=== PATIENT | female | born 1960 | race Caucasian/White ===

== ENCOUNTER 2024-07-20 10:32 | Inpatient (IN) | payer MEDICARE, SELFPAY ==
--- NOTE | ~2024-07-20 | CT_ITS ---
EXAMINATION: CT ABDOMEN AND PELVIS WITH CONTRAST CLINICAL INFORMATION: Lower abdominal pain. Prior history of diverticulitis. COMPARISON: None available. TECHNIQUE: Multidetector volumetric images were obtained from the superior aspect of the liver through the pubic symphysis following administration 85 mL of Omnipaque 350 intravenous contrast. Sagittal and coronal reformatted images were obtained on the technologist's workstation. Oral contrast: No This CT examination was performed using dose optimization techniques as appropriate, variously including the following: *Automated exposure control *Adjustment of mA and/or kV according to patient size (this includes techniques or standardized protocols for targeted exams where dose is matched to indication/reason for exam; i.e. extremities or head) *Use of iterative reconstruction technique DLP: 551 mGy/cm FINDINGS: LUNG BASES: No acute airspace disease in the included lungs. Questionable 1 mm pulmonary nodule left lung base. LIVER, GALLBLADDER, AND BILIARY TREE: Liver measures 15 cm. There are multiple few scattered less than 5 mm hypodensities throughout the parenchyma. There is a focal hypodensity adjacent to the falciform ligament. The portal veins, hepatic veins and intrahepatic portion of the IVC are patent. No pericholecystic fluid collection or gallbladder wall thickening. Common bile duct measures 4 mm. PANCREAS: No focal mass. No peripancreatic fluid collection. No main pancreatic ductal dilatation. SPLEEN: 8 cm. No focal lesion. ADRENAL GLANDS: No nodular lesions. KIDNEYS AND URETERS: No hydronephrosis or gross nephrolithiasis. The right kidney has in ventral rotation of the hilum. No gross renal mass. Subcentimeter hypodensities in the renal parenchyma bilaterally. BLADDER: Fluid-filled. GASTROINTESTINAL TRACT: Numerous diverticula throughout the large intestine mostly in the sigmoid colon. There is a pericolonic edema pattern in the mid-distal sigmoid colon with a prominent diverticulum in the posterior superior margin and trace of fluid without peripheral enhancing fluid collection. No pneumoperitoneum or extraluminal gas. No intestinal obstruction pattern. No pneumatosis intestinalis. I do not see the appendix. Terminal ileum is normal. ABDOMINAL WALL: Small fat-containing umbilical hernia. LYMPH NODES: Prominent lymph nodes, mesenteric and retroperitoneum. VASCULAR: Calcified plaques in the abdominal aorta wall and iliac arteries without aneurysm or dissection. PELVIC VISCERA: I do not see the uterus. OSSEOUS STRUCTURES: Multilevel thoracolumbar spondylosis with S-shaped curvature. No acute fracture or gross listhesis. Large syndesmophyte formation and marginal osteophyte formation at L2-3. No acute fracture or dislocation in the coxofemoral joints. Bony pelvis is intact. CT/CT abdomen pelvis w IV con IMPRESSION: Acute sigmoid colon diverticulitis with questionable phlegmon and no overt fluid collection or extraluminal air/gas. Concerning microperforation. Small fat-containing umbilical hernia. Mild rotation, right kidney, congenital.. Small cyst versus hamartoma, hepatic. Fleischner guidelines were followed. Electronically signed by: Ramakrishna De La Cruz MD 07/20/2024 03:23 PM EST
--- NOTE | 2024-07-20 11:12 | ED_ITS ---
HPI - Abdominal Pain General Chief Complaint: Abdominal Pain Stated Complaint: Severe abd pain Time Seen by Provider: 07/20/24 14:35 Source: patient, RN notes reviewed and old records reviewed Mode of arrival: ambulatory History of Present Illness ED Provider: Mickie Velasquez PA-C HPI narrative: 64-year-old female with a past medical history of diverticulitis presenting to the ED complaining of lower abdominal pain and low back pain x few days with associated nausea. Denies fever, chills, vomiting, diarrhea, hematuria, dysuria Related Data Allergies Allergy/AdvReac Type Severity Reaction Status Date / Time No Known Allergies Allergy Verified 07/20/24 11:16 Review of Systems Review of Systems Yes all other systems are reviewed and are negative Constitutional: Reports as per [facility] Past Medical History Attestation statement: The following information was validated with the patient. Source: old records reviewed Social History Social History Advance Directives: No Advance Directives Information Provided: No Physical Exam ED Vital Signs: Vital Signs - 24 hr 07/20/24 11:14 07/20/24 15:04 Temperature 98.6 F 98.3 F Pulse Rate 84 99 Respiratory Rate 16 16 Blood Pressure 151/96 H 158/77 H Pulse Oximetry 99 97 Oxygen Delivery Method Room Air Room Air BMI result Body Mass Index 28.4 Const General: cooperative, healthy appearing and no acute distress Orientation/consciousness: patient oriented x3 Limitations: no limitations HENMT Head: Yes normal to inspection and Yes atraumatic Ears: hearing grossly normal bilaterally General nose exam: Normal external nose present Face and sinus: Yes normal facial exam Eyes General: appearance normal, both eyes and all related structures EOM: EOMs intact bilaterally Neck Neck: Yes normal visual inspection and Yes no meningeal signs Resp Effort & Inspection: normal respiratory effort and no respiratory distress Auscultation: clear to auscultation bilaterally Cardio Rate: regular rate Heart sounds: S1 normal heart sound present and S2 normal heart sound present GI Inspection: Yes normal to inspection Palpation (GI): Soft to palpation, Tenderness to palpation present (GI) (Lower abdomen) with no rebound tenderness, no guarding and not rigid General: Yes no CVA tenderness Back/Spine/Pelvis Back: no CVA tenderness Skin Rashes: no rashes Wounds: no wounds Neuro General: patient oriented x3, tone normal and no meningeal signs Cranial nerves: Yes CN's II-XII intact bilaterally Gait exam (Neuro): Normal gait present Extrem General: Yes normal to inspection Course Course Course Narrative: This is a Rapid Medical Exam performed in triage by Mickie Velasquez PA-C. Full HPI, ROS and PE to be performed by primary ED provider. 64yo F w/pmhx diverticulitis presenting to the ED c/o lower abdominal pain & low back pain x few days. denies N/V/D, hematuria, dysuria, fever PE: abdomen soft w/lower ttp, no rebound or guarding. no CVAT Plan: labs, UA -1444--labs reassuring. AST/ALT minimally elevated -UA negative 1540--CT abdomen pelvis w IV con IMPRESSION: Acute sigmoid colon diverticulitis with questionable phlegmon and no overt fluid collection or extraluminal air/gas. Concerning microperforation. Small fat-containing umbilical hernia. Mild rotation, right kidney, congenital.. Small cyst versus hamartoma, hepatic. Fleischner guidelines were followed. > will consult General surgery, Dr. Iqbal. Blood cultures and empiric IV Zosyn ordered > plan is for admission for IV antibiotics Medical Decision Making Medical Decision Making [facility] Narrative: 64-year-old female with a past medical history of diverticulitis presenting to the ED complaining of lower abdominal pain and low back pain x few days with associated nausea. On exam vital signs stable, NAD, nontoxic appearing, abdomen soft with lower tenderness, rebound or guarding, no CVAT. Concern for diverticulitis vs appendicitis vs colitis. Rule out UTI. Renal stone on differential. Rule out pyelo. Lower suspicion for pancreatitis, cholecystitis/lithiasis Plan: Labs, UA, CT AP, IVF, pain control, re-evaluate Please refer to course for remaining clinical decision making, interpretation of labs/imaging results, and discussions with consultants and/or family members. Differential Diagnosis Differential Diagnoses: The differential diagnosis associated with the presentation includes As above Admission/Observation Consideration of admission/observation: Escalation of care including admission/observation considered Consult Healthcare Provider Management of the patient was discussed with: Contract Negotiator Lab Data [facility] Lab Attestation statement: I reviewed the patient's lab results. 07/20/24 11:55 07/20/24 11:55 Labs: Lab Results 07/20/24 07/20/24 Range/Units 11:55 11:56 WBC 10.3 (4.8-10.8) X10*3/uL RBC 4.46 (4.20-5.50) X10*6/uL Hgb 14.0 (12.0-16.0) g/dl Hct 41.7 (37.0-47.0) % MCV 93.5 (80.0-98.0) fL MCH 31.4 (27.0-33.0) pg MCHC 33.6 (31.0-35.0) g/dl RDW 12.5 (11.0-16.0) % Plt Count 255 (160-400) X10*3/uL MPV 9.4 (9.4-12.3) fL Immature Gran % (Auto) 0.3 (0.0-0.4) % Neut % (Auto) 78.5 H (45-73) % Lymph % (Auto) 11.7 L (20-40) % [place] % (Auto) 8.7 (2-11) % Eos % (Auto) 0.5 (0-4) % Baso % (Auto) 0.3 (0-2) % Lymph # (Auto) 1.2 (1.2-4.9) X10*3/uL [place] # (Auto) 0.9 (0.1-1.2) X10*3/uL Eos # (Auto) 0.1 (0.0-0.4) X10*3/uL Baso # (Auto) 0.0 (0.0-0.2) X10*3/uL Abs Immat Gran (auto) 0.03 (0.00-0.03) X10*3/uL Absolute Neuts (auto) 8.1 (2.0-8.3) x10*3/uL Absolute Nucleated RBC 0.000 (0.0-0.012) X10*3/uL Nucleated RBC % (auto) 0.0 (0.0-0.2) /100WBC Sodium 142 (135-145) mmol/L Potassium 4.4 (3.3-5.1) mmol/L Chloride 108 (96-108) mmol/L Carbon Dioxide 24 (22-29) mmol/L Anion Gap 14 (12-20) BUN 10 (9-16) mg/dL Creatinine 0.98 (0.5-1.4) mg/dL Estim Creat Clear Calc 60.2 Estimated GFR 57 Random Glucose 110 (60-115) mg/dL Calcium 10.0 (8.4-10.2) mg/dL Magnesium 2.6 (1.6-2.6) mg/dL Total Bilirubin 1.4 H (0.0-1.0) mg/dL Direct Bilirubin 0.5 (0.0-0.5) mg/dL AST 37 H (5-31) U/L ALT 38 H (0-31) U/L Alkaline Phosphatase 91 (39-117) U/L Total Protein 7.8 (6.5-8.0) g/dL Albumin 4.7 (3.5-5.0) g/dL Lipase 25 (8-78) U/L Urine Color Yellow Urine Appearance Clear Urine pH 6.5 (5.0-9.0) Ur Specific [place] <= 1.005 (1.005-1.025) Urine Protein Negative (Neg-Trace) mg/dL Urine Glucose (UA) Negative (Negative) mg/dL Urine Ketones Negative (Negative) mg/dL Urine Blood Negative (Negative) Urine Nitrite Negative (Negative) Ur Leukocyte Esterase Small (1+) H (Negative) Urine RBC 0-2 (0-2) /HPF Urine WBC 0-5 (0-5) /HPF Ur Squamous Epith Cells 0-2 (0-2) /HPF Urine Bacteria None Seen (None Seen) Hyaline Casts 0-2 (0-2) /LPF Independent Interpretation I performed an independent interpretation of an: CT Scan Radiology Impression Discussion of test interpretation with radiology: I have reviewed the radiologist's reading. External Record Review External record reviewed: Inpatient record, Office record, Outpatient record, Prior outpatient labs, Prior outpatient radiology, Primary care record and Outside ED record Tests considered The following testing was considered but not selected: As above Prescription Management I considered prescription management with: Pain Medication and Antibiotic Chronic Conditions Patient?s care impacted by: Other Social Determinants Patient?s care significantly limited by Social Determinants of Health including: Other Social Determinant of Health Medications Administered Discontinued Medications Generic Name Dose Route Start Last Admin Trade Name Freq PRN Reason Stop Dose Admin Sodium Chloride 1,000 mls @ 999 mls/hr 01/31/25 14:45 07/20/24 15:05 Ns IV 07/20/24 15:45 999 mls/hr .Q1H1M MIKE Administration Iohexol 85 ml 07/20/24 15:06 07/20/24 15:06 Iohexol 350 Mg/Ml 75 Ml Infus..Btl IV 07/20/24 15:07 85 ml ONCE ONE Administration Ketorolac Tromethamine 15 mg 07/20/24 14:41 07/20/24 15:05 Ketorolac Tromethamine 15 Mg/Ml Vial IVPUSH 07/20/24 14:42 15 mg ONCE ONE Administration Ondansetron HCl 4 mg 07/20/24 14:41 07/20/24 15:38 Ondansetron Hcl 4 Mg/2 Ml Vial IVPUSH 07/20/24 14:42 Not Given ONCE ONE Critical Care Time Critical Care Time Critical Care Time: Yes Total Critical Care Time: 40 Attestation: I have personally provided critical care time exclusive of time spent on separately billable procedures. Time includes review of lab data, radiology results, discussion with consultants, and monitoring for potential decompensation. Intervention performed as documented. Discharge Plan Discharge Clinical Impression: Diverticulitis of large intestine with complication Patient Disposition: Admitted As Inpatient Print Language: [place]
[2024-07-20 11:14] VITALS: BP 151/96; PULSE 84; RESP 16; TEMP 37; O2SAT 99; BMI 28.4
[2024-07-20 12:02] LABS: MANUAL DIFF FLAG NO
[2024-07-20 12:03] LABS: Basophils Percent Auto 0.3 % (0-2); Eosinophils Absolute Auto 0.1 X10*3/uL (0.0-0.4); Eosinophils Percent Auto 0.5 % (0-4); Hematocrit 41.7 % (37.0-47.0); Imm Gran Abs Auto 0.03 X10*3/uL (0.00-0.03); Imm Gran Pct Auto 0.3 % (0.0-0.4); Lymphocytes Absolute Auto 1.2 X10*3/uL (1.2-4.9); Lymphocytes Percent Auto 11.7 % (20-40); Mean Corpuscular HGB Conc 33.6 g/dl (31.0-35.0); Mean Corpuscular Hemoglobin 31.4 pg (27.0-33.0); Mean Corpuscular Volume 93.5 fL (80.0-98.0); Mean Platelet Volume 9.4 fL (9.4-12.3); Monocytes Absolute Auto 0.9 X10*3/uL (0.1-1.2); Monocytes Percent Auto 8.7 % (2-11); Neutrophils Absolute Auto 8.1 x10*3/uL (2.0-8.3); Neutrophils Percent Auto 78.5 % (45-73); Platelet Count 255 X10*3/uL (160-400); Red Blood Count 4.46 X10*6/uL (4.20-5.50); Red Cell Distribution Width 12.5 % (11.0-16.0); White Blood Count 10.3 X10*3/uL (4.8-10.8)
[2024-07-20 12:06] LABS: Appearance Urine Clear; Color Urine Yellow; Glucose Urine UA Negative (Negative); Leukocyte Esterase Urine Small (1+) (Negative); Nitrite Urine Negative (Negative); PH 6.5 (5.0-9.0); Specific Gravity - Urine <= 1.005 (1.005-1.025); UMIC TRIGGER UACC YES; Urine Blood Negative (Negative); Urine Ketones Negative (Negative); Urine Protein Negative (Neg-Trace)
[2024-07-20 12:15] LABS: Bacteria Urine None Seen (None Seen); Hyaline Casts Urine 0-2 /LPF (0-2); RBC Urine 0-2 /HPF (0-2); Squamous Epithelial Cell Urine 0-2 /HPF (0-2); UACC Culture Trigger YES; WBC Urine 0-5 /HPF (0-5)
[2024-07-20 12:28] LABS: Alanine Aminotransferase 38 U/L (0-31); Albumin Level 4.7 g/dL (3.5-5.0); Alkaline Phosphatase 91 U/L (39-117); Anion Gap 14 (12-20); Aspartate Amino Transferase 37 U/L (5-31); Bilirubin Direct 0.5 mg/dL (0.0-0.5); Bilirubin Total 1.4 mg/dL (0.0-1.0); Blood Urea Nitrogen 10 mg/dL (9-16); Carbon Dioxide 24 mmol/L (22-29); Chloride 108 mmol/L (96-108); Creatinine Clr Calc Pharmacy 60.2; Estimated Glomerular Filt Rate 57; Glucose Random 110 mg/dL (60-115); Lipase 25 U/L (8-78); Magnesium 2.6 mg/dL (1.6-2.6); Potassium 4.4 mmol/L (3.3-5.1); Sodium 142 mmol/L (135-145); Total Protein 7.8 g/dL (6.5-8.0)
[2024-07-20 15:04] VITALS: BP 158/77; PULSE 99; RESP 16; TEMP 36.8; O2SAT 97
[2024-07-20] MEDS: 0.9 % Sodium Chloride 1,000 ML 999 ML IV (15:05)
[2024-07-20] MEDS: Ketorolac Tromethamine 15 MG/ML VIAL IVPUSH (15:05)
[2024-07-20] MEDS: iohexoL 350 MG/ML 75 ML INFUS..BTL 85 ML IV (15:06)
--- OUTSIDE RECORDS SUMMARY | 2024-07-20 15:20 | XMS_ITS | Clinical Summary ---
Author Organization [facility] [address] [place] [address] [place] [address] [place] [address] Phone Care Team Providers Care Rivet Flunky Name Role Phone Daniel Land MD Primary Care Pr ovider Allergies No known active allergies Medications Medication Sig Dispensed Refills Start Date End Date Status omeprazole (PriLOSEC) [address] capsule TAKE 1 CAPSULE BY MOUTH DAILY 04/16/2024 Active docusate sodium (COLACE) 100 mg capsule Take 1 Capsule by mouth daily. 2024 Active rosuvastatin (CRESTOR) 5 mg tablet TAKE 1 TABLET BY MOUTH DAILY 04/09/2024 Active levothyroxine (SYNTHROID, LEVOTHROID) 75 mcg tablet Take 1 Tablet by mouth daily. 02/15/2024 Active zolpidem (AMBIEN) 5 mg tablet Take 1 tablet (5 mg total) by mouth at bedtime as needed for sleep. Max Daily Amount: 5 mg 28 tablet 06/27/2024 Active zolpidem (AMBIEN) 5 mg tablet Take 1 tablet (5 mg total) by mouth at bedtime as needed for sleep. Max Daily Amount: 5 mg 28 tablet 05/30/2024 06/25/2024 Discontinued (Reorder) Active Problems Problem Noted Date Diagnosed Date Osteopenia of multiple sites 07/04/2024 Overweight (BMI 25.0-29.9) 01/18/2024 Irritable bowel syndrome with constipation 01/17 Esophagitis determined by endoscopy 01/18/2024 Esophageal spasm 01/18/2024 Kidney stone on left side 10/20/2023 Lung nodule 10/20/2023 Overview (05/21/2024): R lung. Repeat CT in one year due to hx of smoking Diverticulosis 10/20/2023 CKD stage 3a, GFR 45-59 ml/min 10/10/2023 Prediabetes 10/10/2023 Mixed hyperlipidemia 10/07/2023 Acquired hypothyroidism 10/07/2023 Primary insomnia 10/07/2023 Chronic midline low back pain without sciatica 0 10/07/2023 Encounters Date Type Department Care Team Description 07/09/2024 Telephone Adult Medicine [address] [phone] Daniel Land MD 07/04/2024 10:06 AM EST - 07/04/2024 11:59 PM EST Hospital Encounter Bone Density - [address] [phone] Encounter for screening for osteoporosis Discharge Disposition: Home or Self Care 07/04/2024 10:06 AM EST - 07/04/2024 11:59 PM EST Hospital Encounter Radiology Department - [address] [phone] Encounter for screening mammogram for breast cancer Discharge Disposition: Home or Self Care 06/07/2024 4:00 PM EST Clinic Lab Collection Walk-In [address] [phone] Symptoms involving urinary system 06/07/2024 Telephone Walk-In [address] [phone] Ze Wood PA Results 06/01/2024 4:00 PM EST Office Visit Walk-In [address] [phone] Ze Wood PA Acute cystitis without hematuria (Primary Dx) 06/01/2024 Nurse Triage Adult Medicine [address] [phone] Pat Sam RN from Last 3 Months Surgical History Surgery Date Site/Laterality Comments ESOPHAGOGASTRODUODENOSCOPY 04/2022 PROCEDURE: AL ESOPHAGOGASTRODUODENOSCOPY TRANSORAL DIAGNOSTIC; COMMENT: hiatal hernia, esophageal spasm OTHER SURGICAL HISTORY 1968 PROCEDURE: HISTORICAL ARM SURGERY; COMMENT: plate due to fracture HYSTERECTOMY 1986 PROCEDURE: HISTORICAL HYSTERECTOMY; COMMENT: due to hx of endometriosis OTHER SURGICAL HISTORY Left PROCEDURE: AL ARTHROSCOPY KNEE MENISCAL TRNSPLJ MED/LAT Medical History Medical History Date Comments Acute bronchitis 04/2023 DX:Acute bronch itis Hip bursitis, left 07/2022 DX:Hip bursit is, left Covid-19 DX:COVID-19; COM MENT: feb and November 2021 Rib fractures 01/2021 DX:Rib fractures ; COMMENT: Right Paresthesias 01/2021 DX:Paresthesias; COMMENT: bruning and itching in hands and feet SCC (squamous cell carcinoma) 09/2020 DX :SCC (squamous cell carcinoma); COMMENT: Jay guan. removed Shortness of breath 03/2020 DX:Shortness of breath Chest pain 03/2020 DX:Chest pain Endometriosis DX:Endometriosis Family History Medical History Relation Name Comments Breast cancer Neg Hx Colon cancer Neg Hx Relation Name Status Comments Father Mother Alive Social History Tobacco Use Types Packs/Day Years Used Date Smoking Tobacco: Former Cigarettes Q uit: 06/20/1993 Smokeless Tobacco: Never Alcohol Use Standard Drinks/Week Comments Yes 2 (1 standard drink = 0.6 oz pur e alcohol) Sex and Gender Information Value Date Recorded Sex Assigned at Not on file Gender Identity Not on file Sexual Orientation Not on file Job Start Date Occupation Industry Not on file Not on file Not on file Obstetrics History Para Term AB IAB SAB Ectopic Multiple Livin g Live Births 0 0 0 0 Last Filed Vital Signs Vital Sign Reading Time Taken Comments Blood Pressure 132/76 06/01/2024 4:15 PM EST Pulse 78 06/01/2024 4:15 PM EST Temperature 36.6 ??C (97.9 ??F) 06/01/2024 4:15 PM ES T Respiratory Rate - - Oxygen Saturation 98% 06/01/2024 4:15 PM EST Inhaled Oxygen Concentration - - Weight 78.9 kg (174 lb) 04/18/2024 11:32 AM EDT Height 167.6 cm (5' 6 ) 04/18/2024 11:32 AM EDT Body Mass Index 28.08 04/18/2024 11:32 AM EDT Plan of Treatment Upcoming Encounters Date Type Department Care Team (Late st Contact Info) Description 07/26/2024 10:30 AM EST Office Visit Adult Medicine [address] [phone] Payton Wilson PA [address] [place] [address] Health Maintenance Due Date Last Done Comments COVID-19 Vaccine (#1) 1963 DTaP,Tdap,and Td Vaccines (1 - Tdap) 1977 Zoster Vaccines (1 of 2) 2008 Pneumococcal Vaccine: 65+ Years (1 of 1 - PCV) 2023 Colorectal Cancer Screening: Colonoscopy 01/13/2024 Depression Screening 01/13/2024 Falls Risk Assessment 01/13/2024 Medicare Annual Wellness Visit 01/13/2024 Social Influencers of Health Screening 01/13/2024 Influenza Vaccine (#1) 2024 Breast Cancer Screening 07/04/2026 07/04/2024 Cholesterol Screening (Lipid Panel) 01/11/2029 01/12/2024, 01/12/2024 RSV Immunization Patients 60 + Years Old (1 - 1-dose 75+ series) 2033 Osteoporosis Screening (Bone Density Screening) 07/04/2034 07/04/2024 Hepatitis C Screening Completed 10/07/2023 HIB Vaccines Aged Out No longer eligi ble based on patient's age to complete this topic HPV Vaccines Aged Out No longer eligi ble based on patient's age to complete this topic Hepatitis A Vaccines Aged Out No long er eligible based on patient's age to complete this topic Hepatitis B Vaccines Aged Out No long er eligible based on patient's age to complete this topic IPV Vaccines Aged Out No longer eligi ble based on patient's age to complete this topic MMR Vaccines Aged Out No longer eligi ble based on patient's age to complete this topic Meningococcal ACWY Vaccine Aged Out N o longer eligible based on patient's age to complete this topic RSV Immunization Patients Under 20 months Aged Out No longer eligible b ased on patient's age to complete this topic Varicella Vaccines Aged Out No longer eligible based on patient's age to complete this topic Procedures Procedure Name Priority Date/Time Associated Diagnosis Comments BD BONE DENSITY DXA AXIAL SKELETON Routine 07/04/2024 10:47 AM EST Encounter for screening for osteoporosis MG MAMMO DIGITAL SCREENING W MARGIE BILAT Routine 07/04/2024 10:33 AM EST Encounter for screening mammogram for breast cancer CULTURE URINE Routine 06/07/2024 4:10 PM EST Symptoms involving urinary system POC URINE NON-AUTO W/O MICRO Routine 06/01/2024 5:50 PM EST Acute cystitis without hematuria URINALYSIS MICROSCOPIC ONLY Routine 06/01/2024 5:04 PM EST Acute cystitis without hematuria URINALYSIS MICROSCOPIC ONLY Routine 06/01/2024 5:04 PM EST Acute cystitis without hematuria CULTURE URINE Routine 06/01/2024 5:04 PM EST Acute cystitis without hematuria LIPID PANEL Routine 01/12/2024 HM HEPATITIS C SCREENING Routine 10/07/2023 from Last 3 Months or Most Recently Relevant to Health Maintenance Results * BD Bone Density DXA Axial Skeleton (07/04/2024 10:47 AM EST) Anatomical Region Laterality Modality Wrist, Hip, L-spine Bone Densito metry 07/04/2024 5:39 PM EST Impressions 07/04/2024 5:41 PM EST Osteopenia Reference Information: The T-score is the number of standard deviations above or below the standard which is normal for young adults at their peak bone mineral density. The World Health Organization (WHO) interprets the T-scores as follows: At or above ??-1 SD ?Normal bone density Between -1 and -2.5 SD ??Osteopenia At or below -2.5 SD ?Osteoporosis -------- FINAL REPORT -------- Dictated By: Yennifer Lee Dictated Date: 07/04/2024 17:39 ET Assigned Physician: Yennifer Lee Reviewed and Electronically Signed By: Yennifer Lee Signed Date: 07/04/2024 17:41 ET Workstation ID: [id number] Transcribed By: Self Edit Transcribed Date: 07/04/2024 17:39 ET Narrative 07/04/2024 5:41 PM EST STUDY: ??DUAL ENERGY X-RAY ABSORPTIOMETRY / DXA REASON FOR EXAM: ?? Female, 64 years old ??Z13.820 TECHNIQUE: ?? Bone Mineral Density (BMD) measurements of the lumbar spine and left hip were obtained using [employer] W (S/N [id number]). ?? COMPARISON: None ?? FINDINGS: L1-L4 BMD: 0.875 g/cm2 L1-L4 T score: -1.6. ??This corresponds to osteopenia. Left femoral neck BMD: 0.648 g/cm2 Left femoral neck T score: -1.8. ??This corresponds to osteopenia. Left total hip BMD: 0.792 g/cm2 Left total hip T score: -1.2. ??This corresponds to osteopenia. FRAX score: 10 year risk of major osteoporotic fracture <0.1%, 10 year risk of hip fracture <0.1% Procedure Note Yennifer Lee MD - 07/04/2024 STUDY: DUAL ENERGY X-RAY ABSORPTIOMETRY / DXA REASON FOR EXAM: Female, 64 years old Z13.820 TECHNIQUE: Bone Mineral Density (BMD) measurements of the lumbar spineand left hip were obtained using [employer] W (S/N [id number]). COMPARISON: None FINDINGS: L1-L4 BMD: 0.875 g/cm2 L1-L4 T score: -1.6. This corresponds to osteopenia. Left femoral neck BMD: 0.648 g/cm2 Left femoral neck T score: -1.8. This corresponds to osteopenia. Left total hip BMD: 0.792 g/cm2 Left total hip T score: -1.2. This corresponds to osteopenia. FRAX score: 10 year risk of major osteoporotic fracture <0.1%, 10 yearrisk of hip fracture <0.1% IMPRESSION: Osteopenia Reference Information: The T-score is the number of standard deviations above or below thestandard which is normal for young adults at their peak bone mineraldensity. The World Health Organization (WHO) interprets the T-scores asfollows: At or above -1 SD Normal bone density Between -1 and -2.5 SD Osteopenia At or below -2.5 SD Osteoporosis -------- FINAL REPORT -------- Dictated By: Yennifer Lee Dictated Date: 07/04/2024 17:39 ET Assigned Physician: Yennifer Lee Reviewed and Electronically Signed By: Yennifer Lee Signed Date: 07/04/2024 17:41 ET Workstation ID: [id number] Transcribed By: Self Edit Transcribed Date: 07/04/2024 17:39 ET Daniel Land MD IM DXA PROCEDURES * MG Mammo Digital Screening w Margie bilat (07/04/2024 10:33 AM EST) Anatomical Region Laterality Modality Breast Bilateral Mammography 07/06/2024 9:10 AM EST Impressions 07/06/2024 9:12 AM EST No mammographic evidence of malignancy. BREAST DENSITY: C - The breasts are heterogeneously dense which may obscure small masses. BI-RADS CATEGORY: 1 - NEGATIVE RECOMMENDATION: Screening bilateral mammogram is recommended in 1 year. MAMMO LOCATION: [facility], [address] [place] [address], [id number], . -------- FINAL REPORT -------- Dictated By: Karly Alves Dictated Date: 07/06/2024 09:10 ET Assigned Physician: Karly Alves Reviewed and Electronically Signed By: Karly Alves Signed Date: 07/06/2024 09:12 ET Workstation ID: [id number] Transcribed By: Self Edit Transcribed Date: 07/06/2024 09:10 ET Narrative 07/06/2024 9:12 AM EST EXAM: Screening Mammogram CLINICAL: 64 years old, Female, routine annual exam. COMPARISON: 01/25/2023 and as far back as 02/08/2020 ?? TECHNIQUE: Bilateral MLO and CC views were obtained digitally with 3-D mammogram (digital breast tomosynthesis). Computer-aided detection was utilized in evaluation of this exam (CAD). FINDINGS: No new suspicious mass, architectural distortion, or suspicious calcifications. Procedure Note Karly Alves MD - 07/06/2024 EXAM: Screening Mammogram CLINICAL: 64 years old, Female, routine annual exam. COMPARISON: 01/25/2023 and as far back as 02/08/2020 TECHNIQUE: Bilateral MLO and CC views were obtained digitally with 3-Dmammogram (digital breast tomosynthesis). Computer-aided detection wasutilized in evaluation of this exam (CAD). FINDINGS: No new suspicious mass, architectural distortion, or suspiciouscalcifications. IMPRESSION: No mammographic evidence of malignancy. BREAST DENSITY: C - The breasts are heterogeneously dense which mayobscure small masses. BI-RADS CATEGORY: 1 - NEGATIVE RECOMMENDATION: Screening bilateral mammogram is recommended in 1 year. MAMMO LOCATION: [facility], [address] [place] [address], [id number], . -------- FINAL REPORT -------- Dictated By: Karly Alves Dictated Date: 07/06/2024 09:10 ET Assigned Physician: Karly Alves Reviewed and Electronically Signed By: Karly Alves Signed Date: 07/06/2024 09:12 ET Workstation ID: [id number] Transcribed By: Self Edit Transcribed Date: 07/06/2024 09:10 ET Daniel DURAN * Culture urine (06/07/2024 4:10 PM EST) Only the most recent of2 resultswithin the time period is included. Pathologist [facility] Culture, Urine No growth 06/08/2024 1:51 PM EST [facility] Urine Urine specimen obtained by clean catch procedure / Unknown Non-blood Collection / Unknown 06/07/2024 4:10 PM EST 06/07/2024 4:10 PM EST Ze [facility] LAB MICROBIOLOGY - GENERAL ORDERABLES [facility] [address] [place] [address], * (ABNORMAL) POC Urine Non-Auto W/O Micro (06/01/2024 5:50 PM EST) Pathologist [facility] GLUCOSE POC Negative Negative, Trace mg/dL Leukocytes UA POC 2+(A) Negative mg/dL Nitrite UA POC Positive Urobilinogen UA POC 0.2 E.U./dL mg/dL Protein UA POC Positive Positive, Negative PH UA POC 5.0 AN/HM UA POC Trace(A) Negative Specific Holmes UA POC 1.025 Ketones UA POC Negative Negative Bilirubin UA POC 1+(A) Negative Urine Urine specimen obtained by clean catch procedure / Unknown 06/01/2024 5:50 PM EST Ze [facility] POINT OF CARE TEST ENTER/EDIT ORDERABLES * (ABNORMAL) Urinalysis microscopic only (06/01/2024 5:04 PM EST) Pathologist [facility] RBC, Urine 5(H) 0 - 4 /HPF LAB URINALYSIS - AUTOMATED METHOD 06/01/2024 7:44 PM EST [facility] WBC, Urine 13.3(H) 0 - 4 /HPF LAB URINALYSIS - AUTOMATED METHOD 06/01/2024 7:44 PM EST [facility] Squamous Epithelial, Urine 50 0 - 60 /LPF LAB URINALYSIS - AUTOMATED METHOD 06/01/2024 7:44 PM EST [facility] Bacteria, Urine Negative Negative /HPF LAB URINALYSIS - AUTOMATED METHOD 06/01/2024 7:44 PM EST [facility] Hyaline Casts, Urine 3.3(H) 0 - 3 /LPF LAB URINALYSIS - AUTOMATED METHOD 06/01/2024 7:44 PM [facility] Urine Urine specimen obtained by clean catch procedure / Unknown Non-blood Collection / Unknown 06/01/2024 5:04 PM EST 06/01/2024 5:04 PM EST Ze [facility] URINE ORDERABL ES [facility] [address] [place] [address], * (ABNORMAL) Lipid panel (01/12/2024) Pathologist [facility] LDL/HDL Ratio 3 0 - 4 Triglycerides 212(A) 0 - 150 mg/dL Cholesterol 197 0 - 200 mg/dL HDL 71 40 mg/dL LDL Cholesterol 84 0 - 100 mg/dL Blood Venous blood specimen / Unknown Historical Provider LAB BLOOD ORDERAB LES * Hepatitis C Screening (10/07/2023) Pathologist [facility] Hepatitis C Screening Abstracted Historical Provider MD MARGY Ricketts from Last 3 Months or Most Recently Relevant to Health Maintenance Care Teams Rivet Flunky Relationship Specialty Start Date End Date Daniel Land MD [address] [place] [phone] PCP - General 08/09/23
--- OUTSIDE RECORDS SUMMARY | 2024-07-20 15:20 | XMS_ITS | Encounter Summary ---
Author Organization [facility] Address [address] [place] [address] Care Team Providers Care Enterprise Software Developer Name Role Phone Daniel Land MD Primary Care Pr ovider Reason for Referral * Imaging (Routine) - Closed Specialty Diagnoses / Procedures Referred By Abelardo ricardo Referred To Contact Radiology Diagnoses Encounter for screening for osteoporosis Procedures BD Bone Density DXA Axial Skeleton Daniel Land MD [address] [place] [phone] [facility] Referral ID Status Reason Start Date Expiration Date Visits Re quested Visits Authorized [id number] Closed 04/06/2024 04/06/2025 1 1 Reason for Visit * Imaging (Routine) - Closed Specialty Diagnoses / Procedures Referred By Abelardo ricardo Referred To Contact Radiology Diagnoses Encounter for screening for osteoporosis Procedures BD Bone Density DXA Axial Skeleton Daniel Land MD [address] [place] [phone] [facility] Referral ID Status Reason Start Date Expiration Date Visits Re quested Visits Authorized [id number] Closed 04/06/2024 04/06/2025 1 1 Encounter Details Date Type Department Care Team (Latest Contact Info) Description 07/04/2024 10:06 AM EST - 07/04/2024 11:59 PM EST Hospital Encounter Bone Density - [place] [address] [place] [phone] Encounter for screening for osteoporosis Discharge Disposition: Home or Self Care Social History Tobacco Use Types Packs/Day Years [...] file Not on file Not on file documented as of this encounter Medications at Time of Discharge Medication Sig Dispensed Refills Start Date End Date docusate sodium (COLACE) 100 mg capsule Take 1 Capsule by mouth daily. 2024 levothyroxine (SYNTHROID, LEVOTHROID) 75 mcg tablet Take 1 Tablet by mouth daily. 02/15/2024 omeprazole (PriLOSEC) [address] capsule TAKE 1 CAPSULE BY MOUTH DAILY 04/16/2024 rosuvastatin (CRESTOR) 5 mg tablet TAKE 1 TABLET BY MOUTH DAILY 04/09/2024 zolpidem (AMBIEN) 5 mg tablet Take 1 tablet (5 mg total) by mouth at bedtime as needed for sleep. Max Daily Amount: 5 mg 28 tablet 06/27/2024 documented as of this encounter Discharge Disposition Disposition Code Departure Means Destination Home or Self Care documented in this encounter Plan of Treatment Upcoming Encounters Date Type Department Care Team (Late st Contact Info) Description 07/26/2024 10:30 AM EST Office Visit Adult Medicine [address] [phone] Payton Wilson PA [address] [place] [phone] documented as of this encounter Procedures Procedure Name Priority Date/Time Associated Diagnosis Comments BD BONE DENSITY DXA AXIAL SKELETON Routine 07/04/2024 10:47 AM EST Encounter for screening for osteoporosis documented in this encounter Results * BD Bone Density DXA Axial [...] Signed Date: 07/04/2024 17:41 ET Workstation ID: [id number] Transcribed By: Self Edit Transcribed Date: 07/04/2024 17:39 ET Narrative 07/04/2024 5:41 PM EST STUDY: ??DUAL ENERGY X-RAY ABSORPTIOMETRY / DXA REASON FOR EXAM: ?? Female, 64 years old ??Z13.820 TECHNIQUE: ?? Bone Mineral Density (BMD) measurements of the lumbar spine and left hip were obtained using [employer] W (S/N [id number]). ?? COMPARISON: None ?? FINDINGS: L1-L4 BMD: [...] lumbar spineand left hip were obtained using [employer] W (S/N [id number]). COMPARISON: None FINDINGS: L1-L4 BMD: 0.875 g/cm2 [...] Signed Date: 07/04/2024 17:41 ET Workstation ID: [id number] Transcribed By: Self Edit Transcribed Date: 07/04/2024 17:39 ET Daniel Land MD IM DXA PROCEDURES documented in this encounter Visit Diagnoses Diagnosis Encounter for screening for osteoporosis documented in this encounter Care Teams Enterprise Software Developer Relationship Specialty Start Date End Date Daniel Land MD [address] [place] [phone] PCP - General 08/09/23 documented as of this encounter
--- OUTSIDE RECORDS SUMMARY | 2024-07-20 15:20 | XMS_ITS | Encounter Summary ---
Author Organization [facility] Address [address] [place] [address] Care Team Providers Care Tag Meter Operator Name Role Phone Daniel Land MD Primary Care Pr ovider Reason for Visit * Reason Onset Date Comments Results 06/07/2024 Encounter Details Date Type Department Care Team (Late st Contact Info) Description 06/07/2024 Telephone Walk-In Clinic [address] [phone] Ze Wood PA [address] [place] [phone] Results Social History Tobacco Use Types Packs/Day Years [...] on file documented as of this encounter Progress Notes * Gloria Escobedo MA - 06/07/2024 1:27 PM EST Spock to pt will come in to repeat urin . * MALU Mullen - 06/07/2024 1:15 PM EST Please notify patient that her urine culture returned unable to identify pathogens, potentially contaminated. It is recommended she repeat the urine sample if she is still experiencing symptoms. I have placed orders for repeat urine culture.. * Gissell Surendra - 06/07/2024 9:39 AM EST Pt was seen 06/01 by montez, called requesting test results from urine culture. Is still experiencing back pain and low urination. documented in this encounter Plan of Treatment Upcoming Encounters Date Type Department Care Team (Late st Contact Info) Description 07/26/2024 10:30 AM EST Office Visit Adult Medicine [address] [phone] Payton Wilson PA [address] [place] [address] documented as of this encounter Visit Diagnoses Diagnosis Symptoms involving urinary system- Primary documented in this encounter Care Teams Tag Meter Operator Relationship Specialty Start Date End Date Daniel Land MD [address] [place] [phone] PCP - General 08/09/23 documented as of this encounter
--- OUTSIDE RECORDS SUMMARY | 2024-07-20 15:20 | XMS_ITS | Encounter Summary ---
Author Organization [facility] Address [address] [place] [address] Care Team Providers Care Buggy Driver Name Role Phone Daniel Land MD Primary Care Pr ovider Reason for Visit * Imaging (Routine) - Closed Specialty Diagnoses / Procedures Referred By Abelardo ricardo Referred To Contact Radiology Diagnoses Encounter for screening mammogram for breast cancer Procedures MG Mammo Digital Screening w Renato bilat MG Mammo Digital Screening w Renato bilDaniel Mcleod MD [address] [place] [id number] [facility] Referral ID Status Reason Start Date Expiration Date Visits Re quested Visits Authorized [id number] Closed 04/05/2024 04/05/2025 1 1 Encounter Details Date Type Department Care Team (Latest Contact Info) Description 07/04/2024 10:06 AM EST - 07/04/2024 11:59 PM [facility] Hospital Encounter Radiology Department - [address] [phone] Encounter for screening mammogram for breast cancer Discharge Disposition: Home or Self Care Social [...] 10:30 AM EST Office Visit Adult Medicine [address] [phone] Payton Wilson PA [address] [place] [phone] documented as of this encounter Procedures Procedure Name Priority Date/Time Associated Diagnosis Comments MG MAMMO DIGITAL SCREENING W RENATO BILAT Routine 07/04/2024 10:33 AM EST Encounter for screening mammogram for breast cancer documented in this encounter Results * MG Mammo Digital Screening w Renato bilat (07/04/2024 10:33 AM EST) Anatomical Region Laterality Modality Breast Bilateral Mammography 07/06/2024 9:10 AM EST Impressions 07/06/2024 9:12 AM EST No mammographic evidence of malignancy. BREAST DENSITY: C - The breasts are heterogeneously dense which may obscure small masses. BI-RADS CATEGORY: 1 - NEGATIVE RECOMMENDATION: Screening bilateral mammogram is recommended in 1 year. MAMMO LOCATION: [facility], [address] [place] [address], [id number], . -------- FINAL REPORT -------- Dictated By: Karly Alves Dictated Date: 07/06/2024 09:10 ET Assigned Physician: Karly Alves Reviewed and Electronically Signed By: Karly Alves Signed Date: 07/06/2024 09:12 ET Workstation ID: [id number] Transcribed By: Self Edit Transcribed Date: 07/06/2024 [...] is recommended in 1 year. MAMMO LOCATION: [facility], [address] [place] [address], [id number], . -------- FINAL REPORT -------- Dictated By: Karly Alves Dictated Date: 07/06/2024 09:10 ET Assigned Physician: Karly Alves Reviewed and Electronically Signed By: Karly Alves Signed Date: 07/06/2024 09:12 ET Workstation ID: [id number] Transcribed By: Self Edit Transcribed Date: 07/06/2024 09:10 ET Daniel Land MD IMG BI P ROCEDURES documented in this encounter Visit Diagnoses Diagnosis Encounter for screening mammogram for breast cancer documented in this encounter Care Teams Buggy Driver Relationship Specialty Start Date End Date Daniel Land MD [address] [place] [phone] PCP - General 08/09/23 documented as of this encounter
--- OUTSIDE RECORDS SUMMARY | 2024-07-20 15:20 | XMS_ITS | Encounter Summary ---
Author Organization [facility] Address [address] [place] [address] Care Team Providers Care Metal Products Viewer Name Role Phone Daniel Land MD Primary Care Pr ovider Encounter Details Date Type Department Care Team (Late st Contact Info) Description 07/09/2024 Telephone Adult Medicine [facility] [address] [place] [phone] Daniel Land MD [address] [place] [phone] Social History Tobacco Use Types Packs/Day Years [...] as of this encounter Progress Notes * MALU Dubose - 07/10/2024 8:24 AM EST Reminder made to place order at 2/6 visit if patient comes, thanks * Pat Sam RN - 07/09/2024 2:08 PM EST Called pt and informed her per Dr. Land; CT lung is not due until October 2024. She is in agreement with this plan. * Daniel Land MD - 07/09/2024 1:50 PM EST Pls inform patient CT lung is not due until October 2024. Thanks Payton pls order CT lung at visit for right lung nodules. Due in october 2024. thanks documented in this encounter Plan of Treatment Upcoming Encounters Date Type Department Care Team (Late st Contact Info) Description 07/26/2024 10:30 AM EST Office Visit Adult Medicine [address] [phone] Payton Wilson, MALU [address] [place] [address] documented as of this encounter Visit Diagnoses Not on filedocumented in this encounter Care Teams Metal Products Viewer Relationship Specialty Start Date End Date Daniel Ladn MD [address] [place] [phone] PCP - General 08/09/23 documented as of this encounter
[2024-07-20 16:23] VITALS: BP 148/83; PULSE 77; RESP 16; TEMP 37; O2SAT 100
[2024-07-20] MEDS: Acetaminophen 1,000 MG/100 ML PIGGYBACK 400 MG IV ×2 (16:49→22:32)
[2024-07-20] MEDS: Dextrose 5 % and Lactated Ring 1,000 ML 100 ML IVCONT (17:07)
[2024-07-20] MEDS: Piperacillin Sodium/Tazobactam 4.5 GM in 0.9 % Sodium Chloride 100 ML IV (17:13)
--- NOTE | 2024-07-20 17:52 | PHA.MEDREC ---
Addendum entered by Mercy Waters RPh 07/20/24 17:56: Reviewed by pharmacist Original Note: Pharmacy Consult ? Medication Reconciliation Pharmacy has completed the medication reconciliation. spoke to patient to confirm med list. Patient states she is no longer taking Omeprazole 40 mg. Patient last too her medications today.
[2024-07-20 18:06] VITALS: BP 142/72; PULSE 80; RESP 16; TEMP 36.9; O2SAT 100
[2024-07-20 19:48] VITALS: PULSE 74; RESP 17
[2024-07-20 20:08] VITALS: BMI 30.2
[2024-07-20 20:16] VITALS: BP 161/77; PULSE 59; RESP 16; TEMP 36.4; O2SAT 96
[2024-07-20] MEDS: 0.9 % Sodium Chloride Flush 3 ML SYRINGE IVFLUSH (22:34)
[2024-07-21] MEDS: Zolpidem Tartrate 5 MG TABLET PO (00:34)
[2024-07-21] MEDS: Piperacillin Sodium/Tazobactam 3.375 GM in 0.9 % Sodium Chloride 50 ML IV ×3 (00:51→11:56)
[2024-07-21 03:23] VITALS: BP 128/75; PULSE 75; RESP 16; TEMP 36.2; O2SAT 97
[2024-07-21] MEDS: Dextrose 5 % and Lactated Ring 1,000 ML 100 ML IVCONT (03:53)
[2024-07-21] MEDS: Acetaminophen 1,000 MG/100 ML PIGGYBACK 400 MG IV ×2 (03:54→09:04)
[2024-07-21 05:53] LABS: MANUAL DIFF FLAG NO
[2024-07-21 06:03] LABS: Basophils Percent Auto 0.5 % (0-2); Eosinophils Absolute Auto 0.2 X10*3/uL (0.0-0.4); Eosinophils Percent Auto 2.5 % (0-4); Hematocrit 35.9 % (37.0-47.0); Hemoglobin 11.8 g/dl (12.0-16.0); Imm Gran Abs Auto 0.01 X10*3/uL (0.00-0.03); Imm Gran Pct Auto 0.2 % (0.0-0.4); Lymphocytes Absolute Auto 1.7 X10*3/uL (1.2-4.9); Lymphocytes Percent Auto 27.1 % (20-40); Mean Corpuscular HGB Conc 32.9 g/dl (31.0-35.0); Mean Corpuscular Hemoglobin 30.9 pg (27.0-33.0); Mean Platelet Volume 9.6 fL (9.4-12.3); Monocytes Absolute Auto 0.9 X10*3/uL (0.1-1.2); Monocytes Percent Auto 14.8 % (2-11); Neutrophils Absolute Auto 3.4 x10*3/uL (2.0-8.3); Neutrophils Percent Auto 54.9 % (45-73); Platelet Count 204 X10*3/uL (160-400); Red Blood Count 3.82 X10*6/uL (4.20-5.50); Red Cell Distribution Width 12.8 % (11.0-16.0); White Blood Count 6.1 X10*3/uL (4.8-10.8)
[2024-07-21] MEDS: Levothyroxine Sodium 75 MCG TABLET PO (06:04)
[2024-07-21 06:22] LABS: Anion Gap 13 (12-20); Blood Urea Nitrogen 9 mg/dL (9-16); Calcium 8.9 mg/dL (8.4-10.2); Carbon Dioxide 23 mmol/L (22-29); Chloride 111 mmol/L (96-108); Creatinine Clr Calc Pharmacy 61.3; Estimated Glomerular Filt Rate 56; Glucose Random 108 mg/dL (60-115); Sodium 143 mmol/L (135-145)
[2024-07-21 08:00] VITALS: BP 154/70; PULSE 73; RESP 18; TEMP 36.4; O2SAT 97
--- NOTE | 2024-07-21 08:02 | PM.HPGS ---
History of Present Illness History of Present Illness Date of Service: 07/21/24 Chief complaint: acute sigmoid diverticulitis Narrative: Clare Pop is a 64 year old female presenting with complaints of abdominal pain in the left lower quadrant as well as right lower quadrant. The pain is constant with waves of increased pain. She reports radiation of the pain into her back centrally. She has had previous episodes of diverticulitis but feels this is probably her worst. This morning she continues to have some pain but overall feels improved. She denies any fever or chills. She denies nausea or vomiting. Past surgical history is significant for previous hysterectomy. Workup in the emergency department revealed a normal WBC and CT abdomen and pelvis revealed acute sigmoid colonic diverticulitis with questionable phlegmon and no overt fluid collections or extraluminal air or gas. Possibility of a microperforation was raised however. Patient was admitted to the surgical service for IV antibiotics. Review of Systems Review of Systems: Yes all other systems are reviewed and are negative Constitutional: Constitutional: Denies chills, Denies fever(s), Denies headache(s), Denies poor appetite and Denies weakness ENT: Denies headache(s) Cardiovascular: Cardiovascular: Denies chest pain, Denies irregular heart rhythm, Denies palpitations and Denies dyspnea Respiratory: Respiratory: Denies cough, Denies excessive phlegm production and Denies dyspnea Gastrointestinal: Gastrointestinal: Reports abdominal pain, Reports bloating, Reports change in bowel habits, Reports constipation, Denies heartburn, Denies diarrhea, Denies nausea and Denies vomiting Genitourinary: Genitourinary: Denies urinary frequency Musculoskeletal: Musculoskeletal: Denies back pain, Denies muscle weakness and Denies numbness Integumentary/Breasts: Skin/Breast: Denies changing lesions and Denies unusual bruising Neurologic: Denies headache(s), Denies numbness, Denies paresthesias and Denies weakness Psychiatric: Psychiatric: Denies anxiety and Denies depression Endocrine: Endocrine: Denies palpitations Hematologic/Lymphatic: Hematologic/Lymphatic: Denies lymphadenopathy [facility] Social History Social History Household Members: None Housing: House Do you presently have visiting nurse or other home services: No Patient Tobacco Use Status: Former Tobacco user Tobacco use type: Cigarette Smoked in Last 30 Days: No Use of substances other than those prescribed or required for medical reasons: No Currently Displaying Signs/Symptoms of Drug Intoxication Withdrawal: No Have you been hit, kicked, punched, or otherwise hurt by someone within the past year? If so, by whom?: No Is there a partner from a previous relationship who is making you feel unsafe now?: No Are you made to feel afraid or neglected: No Advance Directives: No Advance Directives Information Provided: No Recently lost weight without trying: No Patient : No : No Meds Allergies Allergy/AdvReac Type Severity Reaction Status Date / Time No Known Allergies Allergy Verified 07/20/24 11:16 Active Medications: Current Medications Calcium Carbonate (Calcium Carbonate 750 Mg Tab.Chew) 750 mg PO Q4H PRN PRN Reason: Heartburn Hydromorphone HCl (Hydromorphone Hcl 0.5 Mg/0.5 Ml Syringe) 0.5 mg IVPUSH Q3H PRN; Protocol PRN Reason: Pain, Severe (Pain Scale 7-10) Acetaminophen (Ofirmev) 1,000 mg in 100 mls @ 400 mls/hr IV Q6H [facility] Stop: 07/21/24 10:14 Last Infusion: 07/21/24 04:16 Dose: Infused Dextrose/Lactated Ringer's (D5lr) 1,000 mls @ 100 mls/hr IVCONT .Q10H [facility] Last Admin: 07/21/24 03:53 Dose: 100 mls/hr Piperacillin Sod/Tazobactam (Sod 3.375 gm/ Sodium Chloride) 50 mls @ 100 mls/hr IV Q6H [facility] Last Infusion: 07/21/24 06:35 Dose: Infused Levothyroxine Sodium (Levothyroxine Sodium 75 Mcg Tablet) 75 mcg PO DAILY@0600 [facility] Last Admin: 07/21/24 06:04 Dose: 75 mcg Magnesium Hydroxide (Milk Of Magnesia 30 Ml Oral.Susp) 30 ml PO DAILY PRN PRN Reason: Constipation Melatonin (Melatonin 3 Mg Tablet) 6 mg PO BEDTIME PRN PRN Reason: Insomnia Ondansetron HCl (Ondansetron Hcl 4 Mg/2 Ml Vial) 4 mg IVPUSH QID PRN PRN Reason: Nausea Oxycodone HCl (Oxycodone Hcl Immed Release 5 Mg Tablet) 5 mg PO Q6H PRN PRN Reason: Pain, Moderate(Pain Scale 4-6) Sodium Chloride (0.9 % Sodium Chloride Flush 3 Ml Syringe) 3 ml IVFLUSH QSHIFT [facility] Last Admin: 07/20/24 22:34 Dose: 3 ml Zolpidem Tartrate (Zolpidem Tartrate 5 Mg Tablet) 5 mg PO BEDTIME [facility] Last Admin: 07/21/24 00:34 Dose: 5 mg Home Medications ?Medication ?Instructions ?Recorded ?Confirmed ?Last Taken ?Type docusate sodium 100 mg capsule 100 mg PO DAILY 07/20/24 07/20/24 07/20/24 History levothyroxine 75 mcg tablet 75 mcg PO DAILY@0600 07/20/24 07/20/24 07/20/24 History rosuvastatin 5 mg tablet 5 mg PO DAILY 07/20/24 07/20/24 07/20/24 History zolpidem 5 mg tablet 5 mg PO BEDTIME 07/20/24 07/20/24 07/19/24 History Physical Exam Vital Signs: Vital Signs: Last Vital Signs Temp 97.2 F 07/21/24 03:23 Pulse 75 07/21/24 03:23 Resp 16 07/21/24 03:23 BP 128/75 07/21/24 03:23 Pulse Ox 97 07/21/24 03:23 O2 Del Method Room Air 07/21/24 03:23 BMI result Body Mass Index 30.2 Const: General: cooperative and no acute distress Nutritional Appearance: well nourished Orientation/consciousness: patient oriented x3 Limitations: no limitations HEENT: Head: Yes normocephalic and Yes atraumatic Ears: hearing grossly normal bilaterally Resp: Effort & Inspection: normal respiratory effort, no audible wheezes, no cough and no respiratory distress Cardio: Jugular venous distension: no JVD GI: Inspection: Yes normal to inspection Palpation (GI): Soft to palpation, Tenderness to palpation present (GI) in the LLQ and in the RLQ; with no rebound tenderness, no guarding and not rigid Percussion: Yes normal to percussion Auscultation: normal bowel sounds Skin: Other: Warm, dry, no rash Neuro: General: patient oriented x3 Extrem: General: Yes no clubbing, cyanosis or edema Results Results Labs: Short CBC 07/20/24 07/21/24 Range/Units 11:55 05:33 WBC 10.3 6.1 (4.8-10.8) X10*3/uL Hgb 14.0 11.8 L (12.0-16.0) g/dl Hct 41.7 35.9 L (37.0-47.0) % Plt Count 255 204 (160-400) X10*3/uL BMP 07/20/24 07/21/24 11:55 05:33 Sodium 142 143 Potassium 4.4 4.0 Chloride 108 111 H Carbon Dioxide 24 23 BUN 10 9 Creatinine 0.98 0.99 Calcium 10.0 8.9 D Liver Function 07/20/24 Range/Units 11:55 Total Bilirubin 1.4 H (0.0-1.0) mg/dL Direct Bilirubin 0.5 (0.0-0.5) mg/dL AST 37 H (5-31) U/L ALT 38 H (0-31) U/L Alkaline Phosphatase 91 (39-117) U/L Albumin 4.7 (3.5-5.0) g/dL Urine 07/20/24 Range/Units 11:56 Urine Color Yellow Urine Appearance Clear Urine pH 6.5 (5.0-9.0) Ur Specific [place] <= 1.005 (1.005-1.025) Urine Protein Negative (Neg-Trace) mg/dL Urine Glucose (UA) Negative (Negative) mg/dL Assessment and Plan (1) Diverticulitis of large intestine with complication: Status: Acute Plan 64-year-old female patient presenting with a recurrent episode of sigmoid diverticulitis. She has had several episodes in the past, the most recent occurring approximately 1 year ago. This morning she does feel improved after antibiotic. Her WBC is improved as well. We discussed management of recurrent diverticulitis. I recommended continuing the antibiotics with possible discharge to home later today on oral antibiotics. Once her current episode has settled she should consider an elective sigmoid colectomy which can be performed laparoscopically to prevent further episodes of diverticulitis. This will be discussed further as an outpatient after discharge. The patient expressed understanding and agrees with the plan. She will be advanced to a regular diet this morning. If this is tolerated she may be able to be discharged. Quality Stroke Does the patient have a stroke diagnosis?: No VTE Prior VTE?: No VTE Risk Level:: Surgical - moderate VTE Device Contraindication: N/A - Device Ordered VTE Drug Contraindication: Treatment Not Indicated Procedures Date of Service Date of Service: 07/21/24
[2024-07-21] MEDS: Atorvastatin Calcium 20 MG TABLET PO (09:05)
[2024-07-21] MEDS: Docusate Sodium 100 MG CAPSULE PO (09:06)
--- NOTE | 2024-07-21 12:40 | P.DS_ITS ---
DS: Providers Provider Date of Service: 07/21/24 Date of admission: 07/20/24 15:50 Date of discharge: 07/21/24 Primary care physician: Daniel Land MD Attending physician on admission: Chacorta Iqbal Attending physician on discharge: Chacorta Iqbal DS: Diagnosis Discharge Diagnosis (1) Diverticulitis of large intestine with complication: Status: Acute DS: Summary Hospital Course Hospital Course: HPI AT ADMISSION: Clare Pop is a 64 year old female presenting with complaints of abdominal pain in the left lower quadrant as well as right lower quadrant. The pain is constant with waves of increased pain. She reports radiation of the pain into her back centrally. She has had previous episodes of diverticulitis but feels this is probably her worst. This morning she continues to have some pain but overall feels improved. She denies any fever or chills. She denies nausea or vomiting. Past surgical history is significant for previous hysterectomy. Workup in the emergency department revealed a normal WBC and CT abdomen and pelvis revealed acute sigmoid colonic diverticulitis with questionable phlegmon and no overt fluid collections or extraluminal air or gas. Possibility of a microperforation was raised however. HOSPITAL COURSE: Patient was admitted to the surgical service for IV antibiotics for recurrent episode of sigmoid diverticulitis. Discussed considering an elective sigmoid colectomy which can be performed laparoscopically to prevent further episodes of diverticulitis once her current episode has settled. The following morning she felt improved after antibiotic. Her WBC was improved as well. Her diet was advanced to solids. She continued to feel well later in the day and was tolerating a solid diet without abd pain. Her abdomen was benign and nontender. She felt ready for discharge to home. She was discharged to home on 07/21/24 on a course of oral augmentin. She is to follow up in the office in 1 week. Time Attestation Discharge Coordination Time (in mins): 30 Quality: Safe Use of Opioids Does Pt have an Active Cancer Diagnosis on the Problem List?: No Quality: Stroke Does the patient have a stroke diagnosis?: No Physical Exam Vital Signs: Vital Signs: Last Vital Signs Temp 97.5 F 07/21/24 08:00 Pulse 73 07/21/24 08:00 Resp 18 07/21/24 08:00 BP 154/70 H 07/21/24 08:00 Pulse Ox 97 07/21/24 08:00 O2 Del Method Room Air 07/21/24 08:00 BMI result Body Mass Index 30.2 GI: Inspection: No distended Palpation (GI): Soft to palpation and nontender Skin: General skin exam: no rashes or lesions noted DS: Data Data Completed and Pending Labs on day of discharge: Preliminary micro results at discharge 07/20/24 16:20 Blood Culture - Preliminary Blood - Venous No growth after 48 hours. 07/20/24 16:20 Blood Culture - Preliminary Blood - Venous No growth after 48 hours. Discharge Plan Discharge Anticipated Discharge Date/Time: 07/21/24 13:05 Patient Disposition: Home, Self-Care Discharge Diagnosis: Sigmoid diverticulitis Referrals: Chacorta Iqbal MD [Physician] - 1 Week Daniel Land MD [Primary Care Provider] - 1 Week Discharge Medications: New amoxicillin-pot clavulanate [Augmentin] 500-125 mg tablet 1 tab PO Q8H Qty: 30 0RF Continued levothyroxine 75 mcg tablet 75 mcg PO DAILY@0600 docusate sodium 100 mg capsule 100 mg PO DAILY zolpidem 5 mg tablet 5 mg PO BEDTIME rosuvastatin 5 mg tablet 5 mg PO DAILY Discharge Orders: Discharge Order (Routine); Ordered 07/21/24 Ordered By: Chacorta Iqbal Diet: Advance to usual diet Activity on Discharge: As tolerated Stand Alone Forms: Patient Portal Discharge page Print Language: Armenian Care Plan Goals: Returned to normal diet and activity as tolerated Health Concerns: Abdominal pain left lower quadrant Plan of Treatment: IV transitioned to oral antibiotics Assessment: Sigmoid diverticulitis Discharge Date/Time: 07/21/24 14:34
--- NOTE | 2024-07-21 14:29 | MHC.CM.PN ---
PT REPORTS SHE LIVES ALONE AND IS INDEPENDENT WITH CARE SHE HAS NO SERVICES AND NO DME SHE DECLINES TO COMPLETE A HCP, BUT DID ACCEPT THE INFO AND DOCUMENT PCP: CRYSTAL SNYDER PT WILL DC HOME TODAY WITH NO SERVICES SISTER TO TRANSPORT
== END 2024-07-21 14:34 | disposition home or self-care (01) | DRG 392 ==
LOC: HO.ED 15:52 → HO.EDOVER 16:01 → HO.S3 19:02
PROVIDERS: Physician Assistant; Admitting Provider Surgery; Emergency Provider Emergency Medicine; PCP Family Medicine; Visit Provider Surgery
DX: K57.32 Diverticulitis of large intestine without perforation or abscess without bleeding (principal); Z79.899 Other long term (current) drug therapy
CPT/HCPCS: 36415; 74177; 80048; 80076; 81001; 83690; 83735; 85025; 87040; 87086; 99285; J0131; J1885; J2543; Q9967

== ENCOUNTER → 2024-07-20 14:41 | Outpatient (BNV) | payer OTHER, SELFPAY | PROVIDERS: Admitting Provider Surgery; Emergency Provider Emergency Medicine; PCP Family Medicine; Visit Provider Radiology Diagnostic Radiology | DX: K57.32 Diverticulitis of large intestine without perforation or abscess without bleeding (principal) | CPT/HCPCS: 74177 ==